=== PATIENT | female | born 1990 | race African-American/Black ===

== ENCOUNTER → 2016-06-09 | Outpatient (CLI) | payer OTHER ==
--- NOTE | ~2016-06-09 | US128 ---
[id number] [facility] [address] [facility] [facility]. [place], [place] [address] [id number] O MR#: [id number] Acc #: [id number] NAME: ALEC HERNANDEZ : 1990 SEX: F STUDY DATE/TIME: 06/09/2016 12:02 UNIT: [facility] ROOM: STUDY DESCRIPTION: Thyroid Attending Physician: Hawk Ludwgi M.D. Referring Physician: Hawk Ludwig M.D. Ordering Physician: Hawk Ludwig M.D. Primary Care Physician: Michi Ordaz M.D. MEDICAL IMAGING REPORT This report is preliminary unless electronic signature is present EXAM Thyroid ultrasound 06/09/2016 HISTORY Enlarged thyroid on physical examination, thyroid goiter, swollen anterior neck for 2 months. FINDINGS The right thyroid lobe measured 4.7 cm x 1.8 cm x 1.7 cm while the left thyroid lobe measured 1.8 cm x 4.4 cm x 1.4 cm. The isthmus measured 4 mm in the AP direction. There is a 4 mm predominately cystic lesion in the upper pole of the right thyroid lobe. The thyroid is heterogeneous in echotexture, but no additional cystic or solid nodules are identified. There are no masses extrinsic to the thyroid. Normal blood flow is seen throughout both thyroid lobes. IMPRESSION Heterogeneous thyroid demonstrating 4 mm predominately cystic lesion upper pole right thyroid lobe. Otherwise negative thyroid ultrasound. Dictated by... Chapin Márquez M.D. THIS IS AN ELECTRONICALLY VERIFIED REPORT Chapin Márquez M.D. at 06/12/2016 12:18 PM NOAM/rubens TD: 06/09/2016 17:33 JOB #: [id number] MEDICAL IMAGING REPORT Page 1 of 1 COPY
== END | disposition home or self-care (01) ==
LOC: CGUS 11:07
DX: E04.9 Nontoxic goiter, unspecified (principal); E07.89 Other specified disorders of thyroid
CPT/HCPCS: 76536